=== PATIENT | male | born 1995 | race Caucasian/White ===

== ENCOUNTER 2017-03-25 22:28 | Emergency (ER) | payer OTHER ==
[~2017-03-25] VITALS: Ht 193 cm; Wt 127.0 kg
[~2017-03-25 22:28] MED LIST: FLEXERIL10 MG PO; MOTRIN800 MG PO
[2017-03-25] MEDS ORDERED: ANAPROX DS550 MG PO (23:26)
[2017-03-25] MEDS ORDERED: ROBAXIN500 M1 PO (23:26)
== END 2017-03-25 23:39 | disposition home or self-care (01) ==
LOC: ED 22:28
DX: S76.912A Strain of unspecified muscles, fascia and tendons at thigh level, left thigh, initial encounter (principal); M54.5 Low back pain; X58.XXXA Exposure to other specified factors, initial encounter; Y93.89 Activity, other specified; Y92.89 Other specified places as the place of occurrence of the external cause; Y99.8 Other external cause status

== ENCOUNTER 2019-01-22 17:40 | Emergency (ER) | payer OTHER ==
[~2019-01-22] VITALS: Ht 193 cm; Wt 127.0 kg
[~2019-01-22 17:40] MED LIST changes: +ANAPROX DS550 MG PO; +ROBAXIN500 M1 PO
[2019-01-22] MEDS ORDERED: ANAPROX DS550 MG PO (17:49)
== END 2019-01-22 18:14 | disposition home or self-care (01) ==
LOC: ED 17:40
DX: T23.232A Burn of second degree of multiple left fingers (nail), not including thumb, initial encounter (principal); X12.XXXA Contact with other hot fluids, initial encounter; Y93.G3 Activity, cooking and baking; Y92.090 Kitchen in other non-institutional residence as the place of occurrence of the external cause; Y99.9 Unspecified external cause status

== ENCOUNTER 2024-04-28 12:35 | Emergency (ER) | payer OTHER ==
[~2024-04-28] VITALS: Ht 193 cm; Wt 129.3 kg
[2024-04-28 13:42] LABS: BASO % 0.6 % (0.0-1.0); EOS # 0.2 10*3/uL (0.0-0.4); EOS % 2.7 % (1.0-4.0); HEMATOCRIT 47.6 % (42.0-52.0); MEAN CELL VOLUME 85.5 fl (80.0-94.0); MEAN CORPUSCULAR HGB 27.8 pg (27.0-31.0); MEAN CORPUSCULAR HGB CONC 32.6 g/dl (33.0-37.0); MEAN PLATELET VOLUME 10.2 fl (9.6-12.3); MONO # 0.9 10*3/uL (0.1-1.0); MONO % 13.6 % (3.0-9.0); NEUT # 4.1 10*3/uL (2.3-7.9); NEUT % 64.7 % (47.0-73.0); PLATELET COUNT AUTOMATED 240 10*3/uL (130-400); RED BLOOD COUNT 5.57 10*6/uL (4.50-5.90); WHITE BLOOD COUNT 6.3 10*3/uL (4.8-10.8)
[2024-04-28 14:03] LABS: BUN 11 mg/dl (9-23); CHLORIDE 103 mmol/L (98-107); POTASSIUM 3.9 mmol/L (3.4-5.1)
[2024-04-28] MEDS ORDERED: Amoxicillin/Clavulanate Pota 875 MG TAB PO ONE (14:35)
[2024-04-28] MEDS ORDERED: AMOX-CLAV 875-1 EACH PO (14:35)
== END 2024-04-28 14:46 | disposition home or self-care (01) ==
LOC: ED 12:35
PROVIDERS: Nurse Practitioner Family
DX: J98.4 Other disorders of lung (principal); Z20.822 Contact with and (suspected) exposure to COVID-19; J02.9 Acute pharyngitis, unspecified; J45.909 Unspecified asthma, uncomplicated; Z98.890 Other specified postprocedural states